=== PATIENT | female | born 1970 | race Hispanic/Latino ===

== ENCOUNTER 2018-08-11 07:06 | Inpatient (IN) | payer BC | END 2018-08-13 20:18 | disposition home health service (06) | LOC: DAHIP 07:06 → 4AH 14:16 | PROC: 0SRC0J9 Replacement of Right Knee Joint with Synthetic Substitute, Cemented, Open Approach (ICD-10-PCS; principal; 2018-08-11 09:50) | DX: M17.11 Unilateral primary osteoarthritis, right knee (principal); Z96.652 Presence of left artificial knee joint; E66.01 Morbid (severe) obesity due to excess calories ==